=== PATIENT | female | born 1990 | race Caucasian/White ===

== ENCOUNTER 2022-12-11 17:23 | Inpatient (IN) ==
[2022-12-11] MEDS ORDERED: PENICILLIN G POTASSIUM 6 MU in DEXTROSE 5% 250 ML IV STA (17:32)
[2022-12-11] MEDS ORDERED: LIDOCAINE 1% LOCAL 20 ML VIAL INFIL PRN (17:32)
[2022-12-11] MEDS ORDERED: OXYTOCIN 30 UNITS/500 ML BAG IV PRN (17:32)
[2022-12-11] MEDS: LACTATED RINGER'S 1,000 ML IV PRN ×2 (17:55→20:38)
--- NOTE | 2022-12-11 18:08 | Labor Progress Brief Note ---
Date of Service December 11, 2022 Subjective Review of Systems All systems reviewed & are unremarkable except as noted in HPI & below Assessment & Plan (1) Group beta Strep positive: Plan: PCN (2) Normal labor: Plan: Epidural when able, augment prn. Physical Exam Constitutional: WD/WN, vitals as above + in distress Eyes: PERRL, conjunctivae normal, anicteric sclerae ENMT: external ear and nose normal, oropharynx normal Neck: supple Respiratory: normal respiratory effort and able to speak in complete sentences; no respiratory distress Cardiovascular: Rate/Rhythm: regular rate and regular rhythm Extremities: + pedal edema Gastrointestinal (Abdomen): Gravid / AGA, nontender Musculoskeletal: no cyanosis or clubbing, extremities motor strength 5/5 Skin: no rashes, warm and dry Neurologic: patellar DTR's 2+ bilat, sensation intact Psychiatric: A+Ox3, euthymic affect Genitourinary: Speculum/Bimanual Exam: no vaginal lesions, no vaginal bleeding and uterus nontender OB Exam Abdomen: + vertex, + estimated weight (7) and + regular contractions (Q3) Manual OB Exam: + cervical dilation 5 cm, + cervical effacement 100%, + station -2 and + amniotic fluid (grossly ruptured for clear) OB Exam Monitor Tracing: + external FHT monitor used, + external uterine monitor used and + category I Lymphatic: no cervical or axillary lymphadenopathy Results & Data Vital Signs (Past 12 Hours) Vital Signs Temp Pulse Resp BP 12/11/22 17:37 90 129/82 12/11/22 17:38 97.9 F 20 Coding Level of Care Code None Diagnoses Group beta Strep positive B95.1 Normal labor O80; Z37.9
[2022-12-11] MEDS ORDERED: SODIUM CHLORIDE 0.9% PF INJ 10 ML VIAL ONE (18:09)
[2022-12-11] MEDS ORDERED: ePHEDrine sulfate 50 MG/ML AMP ONE (18:09)
[2022-12-11] MEDS ORDERED: BUPIVACAINE 0.25% PF 30 ML VIAL ONE (18:09)
[2022-12-11] MEDS ORDERED: fentaNYL citrate PF 100 MCG/2 ML VIAL ONE (18:09)
[2022-12-11] MEDS ORDERED: fentaNYL 2MCG/ML ROPIVACAINE 1.25MG/ML 100 ML BAG EPI ONE (18:10)
[2022-12-11] MEDS ORDERED: LIDOCAINE 2%/EPINEPHRINE 1:200,000 20 ML PF ONE (18:10)
[2022-12-11 18:12] LABS: Hematocrit (blood only) 34.2 % (37.0-47.0); Hemoglobin 11.8 g/dl (12.0-16.0); Mean Corpuscular Hemoglobin 31.1 pg (25.0-34.0); Mean Corpuscular Hgb Conc 34.5 g/dL (32.0-36.0); Mean Corpuscular Volume 90.2 fL (80.0-100.0); Mean Platelet Volume 10.1 fL (9.4-12.4); Platelet Count 299 K/uL (130-400); RDW Coefficient of Variation 13.2 % (11.5-14.5); RDW Standard Deviation 43.4 fL (36.4-46.3); Red Blood Count 3.79 M/uL (4.20-5.40); White Blood Count 16.41 K/ul (4.8-10.8)
[2022-12-11] MEDS ORDERED: fentaNYL 2MCG/ML ROPIVACAINE 1.25MG/ML 100 ML BAG EPI PRN (18:28)
[2022-12-11] MEDS ORDERED: diphenhydrAMINE 50 MG/ML VIAL IV PRN (18:28)
[2022-12-11] MEDS ORDERED: NALBUPHINE HCL INJ 10 MG/ML AMP IV PRN (18:28)
[2022-12-11] MEDS ORDERED: BUPIVACAINE 0.25% PF 30 ML VIAL EPI PRN (18:28)
[2022-12-11] MEDS ORDERED: fentaNYL citrate PF 100 MCG/2 ML VIAL EPI PRN (18:28)
[2022-12-11] MEDS ORDERED: LIDOCAINE 2% MPF LOCAL 5 ML VIAL EPI PRN (18:28)
[2022-12-11] MEDS ORDERED: BUPIVACAINE 0.25% PF 30 ML VIAL EPI STA (18:28)
[2022-12-11] MEDS ORDERED: NALOXONE HCL 0.4 MG/1 ML VIAL/CARP IV PRN (18:28)
[2022-12-11] MEDS ORDERED: LIDOCAINE 2%/EPINEPHRINE 1:200,000 20 ML PF EPI STA (18:28)
[2022-12-11] MEDS ORDERED: ROPIVACAINE 0.5% PF 5 MG/ML 20 ML VIAL EPI PRN (18:28)
[2022-12-11] MEDS ORDERED: NALOXONE HCL 1 MG in SODIUM CHLORIDE 0.9% 1,000 ML IV PRN (18:28)
[2022-12-11] MEDS ORDERED: ePHEDrine sulfate 50 MG/ML AMP IV PRN (18:28)
[2022-12-11] MEDS ORDERED: SODIUM CHLORIDE 0.9% PF INJ 10 ML VIAL EPI PRN (18:28)
[2022-12-11] MEDS ORDERED: SODIUM CHLORIDE 0.9% PF INJ 10 ML VIAL EPI STA (18:28)
[2022-12-11] MEDS ORDERED: fentaNYL citrate PF 100 MCG/2 ML VIAL EPI STA (18:28)
--- NOTE | 2022-12-11 18:28 | Anesthesiology Consultation ---
Date of Service December 11, 2022 Assessment & Plan Chart Review Chart Review: Acceptable Risk for Labor Epidural History Height/Weight Height: 5 ft 3 in Weight: 95.254 kg Allergies Allergy/AdvReac Type Severity Reaction Status Date / Time No Known Allergies Allergy Verified 12/11/22 17:50 Medications Home Medications Medication Instructions Recorded Confirmed Last Taken prenat.vits,faisal,mup-rovd-htamm 1 tab PO DAILY 05/13/22 12/11/22 12/10/22 17:00 escitalopram oxalate 10 mg tablet 10 mg PO DAILY #90 tabs 09/23/22 12/11/22 12/10/22 15:00 Past Medical History Medical History (Updated 12/11/22 @ 18:08 by Priyanka Vo MD) Anxiety Depression Hyperlipemia Migraine Vision problem Past Family History Family History Grandfather Diabetes Hypertension Grandmother Breast cancer age 32 (Paternal) Aunt Breast cancer age 52 (paternal) Grandmother (Maternal) Ovarian cancer Other Colorectal cancer Social History Smoking Status: Never smoker Do You Dip or Chew Tobacco: No Hx Alcohol Use: No Hx Substance Use: No Physical Exam Vital Signs Last Vital Signs Temp 36.6 C 12/11/22 17:38 Pulse 90 12/11/22 17:37 Resp 20 12/11/22 17:38 BP 129/82 12/11/22 17:37 Constitutional WD/WN, vitals as above + in distress Eyes PERRL, conjunctivae normal, anicteric sclerae ENMT external ear and nose normal, oropharynx normal Respiratory normal respiratory effort and able to speak in complete sentences; no respiratory distress Cardiovascular Rate/Rhythm: regular rate and regular rhythm Extremities: + pedal edema Musculoskeletal no cyanosis or clubbing, extremities motor strength 5/5 Skin no rashes, warm and dry Neurologic patellar DTR's 2+ bilat, sensation intact Psychiatric A+Ox3, euthymic affect Genitourinary Speculum/Bimanual Exam: no vaginal lesions, no vaginal bleeding and uterus nontender OB Exam Abdomen: + vertex, + estimated weight (7) and + regular contractions (Q3) Manual OB Exam: + cervical dilation + 5 cm, + cervical effacement + 100%, + station + -2 and + amniotic fluid (grossly ruptured for clear) OB Exam Monitor Tracing: + external FHT monitor used, + external uterine monitor used and + category I Lymphatic no cervical or axillary lymphadenopathy Testing Laboratory Results 12/11/22 17:53
[2022-12-11] MEDS ORDERED: PENICILLIN G POTASSIUM 3 MU in DEXTROSE 5% 100 ML IV SCH (20:00)
[2022-12-11] MEDS: PENICILLIN G POTASSIUM 3 MU in DEXTROSE 5% 100 ML IV SCH (22:34)
[2022-12-12] MEDS: PENICILLIN G POTASSIUM 3 MU in DEXTROSE 5% 100 ML IV SCH ×2 (01:25→02:30)
[2022-12-12] MEDS: LACTATED RINGER'S 1,000 ML IV PRN (04:07)
--- NOTE | 2022-12-12 05:48 | Delivery Summary ---
Vaginal Delivery Summary Date of Service December 12, 2022 Vaginal Delivery Summary DIAGNOSES: 1. Caballero intrauterine at 39w1d gestation. 2. Spontaneous rupture and onset of labor. 3. Group B Streptococcus pos. PROCEDURE: Spontaneous vaginal delivery and repair of midline episiotomy equal to laceration. SURGEON: Priyanka Vo MD. COMMUNITY MENT[employer] HE[employer] SOCIAL WORKER: None. ESTIMATED BLOOD LOSS: 250 mL. COMPLICATIONS: None. PLACENTA: Spontaneous and intact with a 3-vessel cord. DISPOSITION: Stable to labor and delivery. DESCRIPTION: The patient was deemed complete by nursing exam and began second stage. She pushed for approximately 1.5 hours, at which point I was awakened and notified of her status due to concerns for FHT Cat 2. I assessed and found the head OP with asynclitism at +1 station. The patient was coached and had moderate pushing effort. I offered VAVD if she could push down to +2 station. She pushed well and brought the head to +2 in OP position then voiced she could no longer continue and was asking for me to assist with the vacuum. The bladder was emptied via straight catheterization. Vacuum was applied and through several contractions and 2 pop offs the head was brought down significantly, with a little more than the diameter of the vacuum visible outside the labia. However, further attempts at pushing were not yielding further movement, and an assessment of position revealed the head was still OP, asynclitic, and very easily displaceable upwards with significant molding. At this time I counseled the patient that I felt she had failed vacuum extraction and we should move to . She agreed, and she and FOB signed consent. As I went to the nursing station to place orders and document, I was called to the room because the patient was feeling uncontrollable urge to grunt and push down, and the head was back to . Anesthesiology was on the way to the hospital so during that time we went ahead and continued to push. The patient was making significantly more productive efforts, and without further ass istance, she moved the head forward. An episiotomy was offered and accepted, and a small midline epis was created. The infant's head then delivered shortly afterwards. There was a tight shoulder/ nuchal cord. The shoulders and body delivered without any difficulty, and the infant was placed on the maternal abdomen. The cord was doubly clamped by the and then cut by the FOB, and the infant was moved immediately to the warmer for resuscitation, as it was not immediately vigorous. The placenta delivered spontaneously and was noted to be intact and with a 3VC. The cervix, vagina and perineum were examined and were found to have the episiotomy without extension, which was repaired with vicryl as equivalent to a second-degree laceration. Lidocaine was infiltrated to the tissue prior to repair 10cc 1% plain as she was feeling tenderness with palpation of the tissue. The fundus was firm and lochia minimal immediately after delivery. [facility] [place] Vaginal Delivery Charge Vaginal Delivery Codes: 39212 global code for the antepartum, delivery, and post-
[2022-12-12] MEDS ORDERED: oxyCODONE/ACETAMINOPHEN 5mg/325mg TAB PO PRN (06:06)
[2022-12-12] MEDS ORDERED: DIPHTHERIA/TETANUS/PERTUSSIS Vaccine (Tdap, Age 7+yrs) 0.5mL SYR/VL IM ONE (06:06)
[2022-12-12] MEDS ORDERED: HYDROCORTISONE ACETATE 25 MG SUPP PR PRN (06:06)
[2022-12-12] MEDS ORDERED: BENZOCAINE 20% SPRY 85 APPLN/85 GM CAN EXT PRN (06:06)
[2022-12-12] MEDS ORDERED: OXYTOCIN 30 UNITS/500 ML BAG IV PRN (06:06)
[2022-12-12] MEDS ORDERED: ACETAMINOPHEN 325 MG TAB PO PRN (06:06)
[2022-12-12] MEDS ORDERED: PRENATAL VITAMIN 1 TAB PO SCH (08:00)
[2022-12-12] MEDS ORDERED: DOCUSATE SODIUM 100 MG CAP PO SCH (08:00)
[2022-12-12] MEDS ORDERED: ESCITALOPRAM OXALATE 10 MG TAB PO SCH (09:00)
[2022-12-12] MEDS: IBUPROFEN 600 MG TAB PO PRN ×2 (11:49→15:01)
[2022-12-12 12:09] VITALS: PULSE 92
--- NOTE | 2022-12-12 16:46 | Obstetrical Progress Note ---
Date of Service December 12, 2022 Assessment & Plan (1) Encounter for care and examination after delivery: Petra is a day 0 status post a vacuum-assisted vaginal delivery. Delivery occurred approximately 12 hours ago. Baby is being sent to [facility] NICU for care. Patient is doing well postdelivery. Patient is denying any concerns at present. Vitals are normal. Normal postdelivery bleeding has been noted. Discussed option for discharge early secondary to baby being transferred. I discussed ongoing postdelivery precautions including monitoring for bleeding, preeclampsia and fevers. Answered questions to the patient's satisfaction. I advised that she call with any concerns or present to the emergency department at [facility]. Denies any Results & Data Vital Signs (Past 12 Hours) Vital Signs Temp Pulse Pulse Resp BP BP Pulse Ox 12/12/22 12:00 36.5 C 92 H 22 127/73 98 12/12/22 07:30 36.8 C 20 12/12/22 08:30 36.5 C 16 126/77 95 12/12/22 07:00 20 12/12/22 06:30 36.7 C 18 12/12/22 06:00 36.6 C 18 12/12/22 06:15 36.6 C 18 12/12/22 05:45 36.9 C 18 12/12/22 05:30 36.9 C 20 12/12/22 07:53 90 122/77 12/12/22 07:38 100 H 129/69 12/12/22 07:23 99 H 135/72 12/12/22 07:09 85 140/75 12/12/22 06:53 89 125/80 12/12/22 06:38 94 H 125/72 12/12/22 06:23 93 H 131/72 12/12/22 06:08 90 130/68 12/12/22 05:53 91 H 128/62 12/12/22 05:38 100 H 131/64 12/12/22 05:33 104 H 128/66 12/12/22 05:31 106 H 97 12/12/22 05:26 111 H 97 12/12/22 05:21 104 H 96 12/12/22 05:16 108 H 96 12/12/22 05:11 165 H 92 12/12/22 05:06 131 H 93 12/12/22 05:03 125 H 82 L 12/12/22 05:01 126 H 95 12/12/22 04:56 115 H 96 12/12/22 04:51 121 H 95 12/12/22 04:46 109 H 96 O2 Del Method 12/12/22 12:00 Room Air 12/12/22 07:30 12/12/22 08:30 Room Air 12/12/22 07:00 12/12/22 06:30 12/12/22 06:00 12/12/22 06:15 12/12/22 05:45 12/12/22 05:30 12/12/22 07:53 12/12/22 07:38 12/12/22 07:23 12/12/22 07:09 12/12/22 06:53 12/12/22 06:38 12/12/22 06:23 12/12/22 06:08 12/12/22 05:53 12/12/22 05:38 12/12/22 05:33 12/12/22 05:31 12/12/22 05:26 12/12/22 05:21 12/12/22 05:16 12/12/22 05:11 12/12/22 05:06 12/12/22 05:03 12/12/22 05:01 12/12/22 04:56 12/12/22 04:51 12/12/22 04:46
[2022-12-12 17:14] VITALS: BP 125/86; RESP 18; TEMP 97.5; O2SAT 97
== END 2022-12-12 18:00 | disposition home or self-care (01) | DRG 807 ==
LOC: OPB 17:23 → 4S1 17:25 → 4E2 12-12 08:24

== ENCOUNTER 2024-03-30 08:13 | Inpatient (IN) ==
[2024-03-30] MEDS ORDERED: LIDOCAINE 1% LOCAL 20 ML VIAL INFIL PRN (08:21)
[2024-03-30] MEDS ORDERED: OXYTOCIN 30 UNITS/NSS 30 UNITS/500 ML BAG IV PRN ×2 (08:21→13:52)
--- NOTE | 2024-03-30 08:22 | History & Physical Report ---
Date of Service March 30, 2024 Assessment & Plan (1) Normal labor: (2) Diet controlled gestational diabetes mellitus (GDM), antepartum: (3) Carrier of group B Streptococcus: Plan admit for labor, gbs positive--treat now. epidural on demand. arom as indicated. anticipate . History of Present Illness Chief Complaint: contractions Primary Care Provider: Roxana Hussein MD Patient is a 33yowf with iup at 39 5/7 who presents with worsening contractions. no lof. some blood tinged mucous. +fm. and Delivery Plans First child from SIDS GBS Positive on Vaginal Cx @ 12wks *Treat in Labor Persistent HPV infection *colpo recommended--Pt plans pp, see note 10/14 GDM w/16wk glucola *Begin monthly Growth US's @24wks OB Labs: Blood Type A Positive 08/19/23 Antibody Screen NEGATIVE 08/19/23 Hgb 11.4 g/dl (12.0-16.0) L 01/15/24 Hct 34.1 % (37.0-47.0) L 01/15/24 MCV 89.0 fL (80.0-100.0) 08/19/23 Plt Count 371 K/uL (130-400) 08/19/23 VZV IgG Antibody 880.40 index 07/01/22 Rubella IgG Antibody Immune (Immune) 08/19/23 RPR Nonreactive (Nonreactive) 08/19/23 Treponema pallidum Ab Negative (Negative) 01/15/24 Hep Bs Antigen NON-REACTIVE (NON-REACTIVE) 08/19/23 Hepatitis C Ab (EIA) NON-REACTIVE (NON-REACTIVE) 05/14/22 HIV (1&2) Ag & Ab Conf NON-REACTIVE (NON-REACTIVE) 08/19/23 Glucose 1 Hr 50 gm 144 mg/dl (70-130) H 10/31/23 OB Optional Labs: Chlamydia trachomatis RNA Not Detected (NotDetected) 08/19/23 Neisseria gonorrhoeae RNA Not Detected (NotDetected) 08/19/23 Thyroid Stimulating Hormone (TSH) 1.826 uIu/ml (0.300-4.500) 05/19/23 Labs Reviewed: declines cf/sma - sln declines msafp smp declines quad smp low risk cfDNA smp gbs positive--ak Allergies Allergy/AdvReac Type Severity Reaction Status Date / Time No Known Allergies Allergy Verified 03/29/24 14:21 Home Medications Medication Instructions Recorded Confirmed Type prenat.vits,faisal,gik-jouw-ruoqf 1 tab PO DAILY 05/13/22 03/29/24 History nystatin-triamcinolone 100,000 1 applic topical BID 2 weeks #30 09/22/23 03/29/24 Rx unit/gram-0.1 % topical ointment grams escitalopram oxalate 20 mg tablet 5 mg PO DAILY 10/14/23 03/29/24 History acetone (urine) test (Ketone Urine #50 ea 11/23/23 03/29/24 Rx Test strips) blood sugar diagnostic (OneTouch #150 ea 11/23/23 03/29/24 Rx Verio test strips) blood-glucose meter (OneTouch #1 ea 11/23/23 03/29/24 Rx Verio Reflect Meter) lancets 33 gauge (OneTouch Delica #150 ea 11/23/23 03/29/24 Rx Plus Lancet) miconazole nitrate 2 % vaginal 1 appful vaginal ONCE 7 days #45 01/01/24 03/29/24 Rx cream (Monistat 7) grams clindamycin phosphate 2 % vaginal 1 appful vaginal DAILY 7 days #40 03/18/24 03/29/24 Rx cream grams Patient History Medical History History of chicken pox Family history of breast cancer History of migraine Depression Anxiety Hyperlipemia Migraine Surgical History Status post colposcopy Family History Grandfather Diabetes Hypertension Grandmother Breast cancer age 32 (Paternal) Aunt Breast cancer age 52 (paternal) Grandmother (Maternal) Uterine cancer Other Colorectal cancer Social History Smoking Status: Never smoker Second Hand Exposure: Yes; Do You Dip or Chew Tobacco: No; Hx Alcohol Use: No Hx Substance Use: No Preferred Language: Frisian Communication Ability: Effective Visual Impairment: No Limitations Hearing Ability: Normal Hop Sorter Required: No Beliefs That Will Affect Care: None marital status: Single marital status details: kelvin Ramos(35) [phone] Current Living Situation: Significant Other Current Living Situation Comment: lives with jaya warren-meme changing litter current occupational status: employed current occupation: [employer]prior auth Feels Safe at Home: Yes Childhood Exposure to Second-Hand Smoke: Yes Diet: regular caffeine: No Dental Care, Regularly: Yes Physical Activity Frequency: Does not Exercise Assistive Devices: None OB History Past Pregnancies Del. Date GA wks Lbr Lgth wt Sex Type del Anes Place Del Prov ? Comment 12/12/22 39 8lb 6oz M Epidu [facility] Dr. Gilda James Infant from SIDS 04/2023 [facility] History noncontributory Physical Exam Constitutional: WD/WN, vitals as above Gastrointestinal (Abdomen): soft, gravid, nt Psychiatric: A+Ox3, euthymic affect Genitourinary: cx--5/100/-2/bulging bag toco--q2-3 efm--130s with mod variability., no decels Coding Level of Care Code None Diagnoses Normal labor O80; Z37.9 Diet controlled gestational diabetes mellitus (GDM), antepartum O24.410 Carrier of group B Streptococcus Z22.330
[2024-03-30] MEDS: SODIUM CHLORIDE 0.9% 1,000 ML IV SCH (08:50)
[2024-03-30] MEDS: PENICILLIN GK 6 MU in SODIUM CHLORIDE 0.9% 250 ML IV STA (08:52)
[2024-03-30 09:01] LABS: Hematocrit (blood only) 34.3 % (37.0-47.0); Hemoglobin 11.6 g/dl (12.0-16.0); Mean Corpuscular Hemoglobin 29.5 pg (25.0-34.0); Mean Corpuscular Hgb Conc 33.8 g/dL (32.0-36.0); Mean Corpuscular Volume 87.3 fL (80.0-100.0); Mean Platelet Volume 9.3 fL (9.4-12.4); Platelet Count 315 K/uL (130-400); RDW Coefficient of Variation 14.1 % (11.5-14.5); RDW Standard Deviation 44.8 fL (36.4-46.3); Red Blood Count 3.93 M/uL (4.20-5.40); White Blood Count 20.46 K/ul (4.8-10.8)
--- NOTE | 2024-03-30 09:10 | Anesthesiology Consultation ---
Date of Service March 30, 2024 Assessment & Plan ASA ASA2 Proposed Anesthesia Anesthesia Type: Labor Epidural Risk / Benefits Reviewed With: PT / POA / Parent / Guardian, Accepts Plan and Informed Consent Obtained History Height/Weight Height: 5 ft 3 in Weight: 95.708 kg Allergies Allergy/AdvReac Type Severity Reaction Status Date / Time No Known Allergies Allergy Verified 03/29/24 14:21 Medications Home Medications Medication Instructions Recorded Confirmed Last Taken prenat.vits,faisal,bnm-mevb-ytjtf 1 tab PO DAILY 05/13/22 03/29/24 12/10/22 17:00 nystatin-triamcinolone 100,000 1 applic topical BID 2 weeks #30 09/22/23 03/29/24 Unknown unit/gram-0.1 % topical ointment grams escitalopram oxalate 20 mg tablet 5 mg PO DAILY 10/14/23 03/29/24 Unknown acetone (urine) test (Ketone Urine #50 ea 11/23/23 03/29/24 Unknown Test strips) blood sugar diagnostic (OneTouch #150 ea 11/23/23 03/29/24 Unknown Verio test strips) blood-glucose meter (OneTouch #1 ea 11/23/23 03/29/24 Unknown Verio Reflect Meter) lancets 33 gauge (OneTouch Delica #150 ea 11/23/23 03/29/24 Unknown Plus Lancet) miconazole nitrate 2 % vaginal 1 appful vaginal ONCE 7 days #45 01/01/24 03/29/24 Unknown cream (Monistat 7) grams clindamycin phosphate 2 % vaginal 1 appful vaginal DAILY 7 days #40 03/18/24 03/29/24 Unknown cream grams Past Medical History Medical History History of chicken pox Family history of breast cancer History of migraine Depression Anxiety Hyperlipemia Migraine Exercise / Class Metabolic Activity II 4-5 Yardwork/Stairs/Walk up hill Past Family History Family History Grandfather Diabetes Hypertension Grandmother Breast cancer age 32 (Paternal) Aunt Breast cancer age 52 (paternal) Grandmother (Maternal) Uterine cancer Other Colorectal cancer Past Surgical History Surgical History Status post colposcopy Past Anesthesia History No Hx of Anesthesia Complications and No Family Hx of Anesthesia Complications History of PONV No Hx of PONV and No Hx of Motion Sickness Social History Smoking Status: Never smoker Do You Dip or Chew Tobacco: No Hx Alcohol Use: No Hx Substance Use: No Review of Systems denies fever/cough/ colds/ chest pain/ SOB/ [place] denies [place] Physical Exam Vital Signs Last Vital Signs Temp 36.4 C L 03/30/24 08:42 Pulse 109 H 03/30/24 09:41 Resp 17 03/30/24 08:42 BP 105/57 L 03/30/24 09:41 Pulse Ox 100 03/30/24 09:39 ENMT Mouth: no TMJ abnormality and no dentition abnormality Thyromental Distance: > or= 3.5 Finger Breadths Mallampati Class: II Neck neck extension not limited Respiratory normal respiratory effort; no respiratory distress Auscultation: lungs clear to auscultation bilaterally Cardiovascular Rate/Rhythm: regular rate and regular rhythm Neurologic moves all extremities Psychiatric Orientation: alert and oriented x 3 Testing Laboratory Results 03/30/24 08:31 03/30/24 09:19 POC Glucose 116 H
[2024-03-30] MEDS ORDERED: fentANYL 2 MCG/ML BUPIVacaine 0.125%-NSS 100ML BAG EPI PRN (09:13)
[2024-03-30] MEDS ORDERED: NALOXONE HCL 1 MG in SODIUM CHLORIDE 0.9% 1,000 ML IV PRN (09:13)
[2024-03-30] MEDS ORDERED: ePHEDrine sulfate 50 MG/ML AMP IV PRN (09:13)
[2024-03-30] MEDS ORDERED: NALOXONE HCL 0.4 MG/1 ML VIAL/CARP IV PRN (09:13)
[2024-03-30] MEDS ORDERED: SODIUM CHLORIDE 0.9% PF INJ 10 ML VIAL EPI PRN (09:13)
[2024-03-30] MEDS ORDERED: fentaNYL citrate PF 100 MCG/2 ML VIAL EPI PRN (09:13)
[2024-03-30] MEDS ORDERED: NALBUPHINE HCL INJ 10 MG/ML AMP IV PRN (09:13)
[2024-03-30] MEDS ORDERED: diphenhydrAMINE 50 MG/ML VIAL IV PRN (09:13)
[2024-03-30] MEDS ORDERED: ROPIVACAINE 0.5% PF 5 MG/ML 20 ML VIAL EPI PRN (09:13)
[2024-03-30] MEDS ORDERED: LIDOCAINE 2% MPF LOCAL 5 ML VIAL EPI PRN (09:13)
[2024-03-30] MEDS ORDERED: BUPIVACAINE 0.25% PF 30 ML VIAL EPI PRN (09:13)
[2024-03-30] MEDS: LIDOCAINE 2%/EPINEPHRINE 1:200,000 20 ML PF ONE (09:37)
[2024-03-30] MEDS: BUPIVACAINE 0.25% PF 30 ML VIAL ONE (09:37)
[2024-03-30] MEDS: fentaNYL citrate PF 100 MCG/2 ML VIAL ONE (09:38)
[2024-03-30] MEDS: fentANYL 2 MCG/ML BUPIVacaine 0.125%-NSS 100ML BAG ONE (09:39)
[2024-03-30] MEDS: ONDANSETRON INJ 2 MG/ML 2 ML VIAL IV PRN (10:33)
[2024-03-30] MEDS: PENICILLIN GK 3 MU in DEXTROSE 5% 100 ML IV PRN (12:26)
[2024-03-30] MEDS ORDERED: HYDROCORTISONE ACETATE 25 MG SUPP PR PRN (13:52)
[2024-03-30] MEDS ORDERED: DIPHTHER/TETAN/PERTUS Vaccine (Tdap, Adol/Adult) 0.5mL IM ONE (13:52)
[2024-03-30] MEDS ORDERED: bisacodyL 10 MG SUPP PR PRN (13:52)
[2024-03-30] MEDS ORDERED: oxyCODONE/ACETAMINOPHEN 5mg/325mg TAB PO PRN (13:52)
[2024-03-30] MEDS ORDERED: ACETAMINOPHEN 325 MG TAB PO PRN (13:52)
--- NOTE | 2024-03-30 15:05 | Delivery Summary ---
Vaginal Delivery Summary Date of Service March 30, 2024 Vaginal Delivery Summary and 1st Degree LAC (vaginal repaired) Patient is a 2 para 1-0-0-0 female who presents at 39-5/7 weeks in active labor. She received epidural analgesia which was effective. Membranes ruptured spontaneously for clear fluid when she was at full dilation. She pushed effectively through several contractions for delivery of a viable female infant. After the head was delivered, rest of the infant delivered without maternal effort and was placed on the mother's abdomen for further tension and drying. After cord was obtained, the placenta was expressed intact with a three-vessel cord. bleeding was controlled with dilute Pitocin and fundal massage. A first-degree vaginal laceration was repaired with 2-0 chromic in usual fashion. QBL was 200 cc. Mother and infant were doing well after delivery. [facility] [place] [place] Vaginal Delivery Charge Delivery Type Details: and 1st Degree LAC (vaginal repaired)
--- NOTE | 2024-03-30 15:33 | Anesthesia Procedure Note ---
Date of Service March 30, 2024 Anesthesia Post Epidural Note Vital Signs Vital Signs: Temp Pulse Resp BP Pulse Ox 37.1 C 100 H 16 107/57 L 97 03/30/24 14:50 03/30/24 15:24 03/30/24 14:50 03/30/24 15:24 03/30/24 15:09 Pain Intensity Lower Back: Pain Intensity: 8 Notes Mental Status: alert / awake / arousable and participated in evaluation Nausea / Vomiting: adequately controlled Pain: adequately controlled Airway Patency, RR, SpO2: stable & adequate BP & HR: stable & adequate Hydration State: stable & adequate Neuraxial Anesthesia: was administered and sensory block resolved Anesthetic Complications: no major complications apparent and Pt Satisfied with anesthetic care Epidural: Removed without complications and With tip intact
[2024-03-30] MEDS: ePHEDrine sulfate 50 MG/ML AMP ONE (15:44)
[2024-03-30] MEDS: SODIUM CHLORIDE 0.9% PF INJ 10 ML VIAL ONE (15:44)
[2024-03-30] MEDS: SODIUM CHLORIDE 0.9% PF INJ 10 ML VIAL EPI STA (15:45)
[2024-03-30] MEDS: LIDOCAINE 2%/EPINEPHRINE 1:200,000 20 ML PF EPI STA (15:45)
[2024-03-30] MEDS: BUPIVACAINE 0.25% PF 30 ML VIAL EPI STA (15:45)
[2024-03-30] MEDS: fentaNYL citrate PF 100 MCG/2 ML VIAL EPI STA (15:45)
[2024-03-30] MEDS: ESCITALOPRAM OXALATE 20 MG TAB PO SCH (17:55)
[2024-03-30] MEDS: DOCUSATE SODIUM 100 MG CAP PO SCH (21:22)
[2024-03-30] MEDS: IBUPROFEN 600 MG TAB PO PRN (21:22)
[2024-03-31] MEDS: BENZOCAINE 20% SPRY 85 APPLN/85 GM CAN EXT PRN (00:51)
[2024-03-31 06:30] LABS: Hematocrit (blood only) 29.6 % (37.0-47.0); Hemoglobin 9.9 g/dl (12.0-16.0); Mean Corpuscular Hgb Conc 33.4 g/dL (32.0-36.0); Mean Corpuscular Volume 89.7 fL (80.0-100.0); Mean Platelet Volume 9.5 fL (9.4-12.4); Platelet Count 266 K/uL (130-400); RDW Coefficient of Variation 14.1 % (11.5-14.5); RDW Standard Deviation 45.8 fL (36.4-46.3); White Blood Count 19.07 K/ul (4.8-10.8)
--- NOTE | 2024-03-31 08:03 | Obstetrical Progress Note ---
Date of Service March 31, 2024 Assessment & Plan (1) Encounter for care and examination after delivery: Plan satisfactory exam continue current care plan patient will contact outpatient peds office about acquiring an apnea monitor as it seems this is not facilitated through hospitalist peds Subjective Ambulation: ambulating normally Voiding: no voiding problems Passing Gas:: Yes Diet Tolerance:: regular diet Lochia:: Small Feeding Type:: breast feeding Review of Systems All systems reviewed & are unremarkable except as noted in HPI & below Physical Exam Constitutional WD/WN, vitals as above Psychiatric A+Ox3, euthymic affect Genitourinary OB Exam Abdomen: + fundal height Fundus: + firm and + relation to umbilicus (at U) Results & Data Vital Signs (Past 12 Hours) Vital Signs Temp Pulse Resp BP 03/31/24 05:12 98.1 F 80 18 106/68
[2024-03-31] MEDS: PRENATAL VITAMIN 1 TAB PO SCH (08:07)
[2024-03-31 13:20] VITALS: TEMP 98.1
[2024-03-31 17:15] VITALS: BP 106/73; PULSE 94; RESP 20; O2SAT 95
[2024-03-31] MEDS ORDERED: bisacodyL 5 MG TABEC PO SCH (20:00)
== END 2024-03-31 18:05 | disposition home or self-care (01) | DRG 807 ==
LOC: OPB 08:13 → 4S1 08:18 → 4E2 17:20